=== PATIENT | female | born 1955 | race Two or more races ===

== ENCOUNTER 2018-05-25 09:25 | Emergency (ER) | payer BC, OTHER ==
[2018-05-25 09:50] VITALS: BP 159/97; PULSE 88; TEMP 98; BMI 22.1
--- NOTE | 2018-05-25 10:18 | PDOC ---
History of Present Illness - General Chief Complaint: Eye Problem Stated Complaint: EYE PROBLEM Time Seen by Provider: 05/25/18 10:03 History Source: Patient Exam Limitations: No Limitations - History of Present Illness Initial Comments: 05/25/18 10:12 62 yr female with one week left eye redness now with redness and pain to both nostrils. no fever , pt states no history of MRSA, no DM. neg vision change or discharge, was using eye drops with no relief. 05/25/18 10:20 Timing/Duration: 1 week, getting worse Severity: moderate Associated Symptoms: reports: denies symptoms Past History - Past Medical History Allergies/Adverse Reactions: Allergies Allergy/AdvReac Type Severity Reaction Status Date / Time No Known Drug Allergies Allergy Verified 05/25/18 09:47 Home Medications: Ambulatory Orders Calc/D3/Mag/Zn/Wad Blanking Press Adjuster/Eddie/[place] [Calcium 600 mg + Vit D Tab] 1 each PO BID #0 tablet 10/20/12 Hydroxychloroquine So4 [Plaquenil -] 200 mg PO BID #0 tablet 10/20/12 Leflunomide [Arava (Nf) -] 10 mg PO BID 02/20/13 Alendronate Na [Fosamax (Weekly)] 35 mg PO Q7D 02/19/14 Folic Acid/Multivit-Min/Lutein [Centrum Silver Chewable Tablet] 1 each PO DAILY 02/19/14 Hydrocodone/Acetaminophen [Vicodin Hp 10-300 mg Tablet] 1 each PO PRN PRN Tofacitinib Citrate [Xeljanz] 5 mg PO BID 02/19/14 Hydrocodone Bit/Acetaminophen [Vicodin Es 7.5-300mg -] 1 tab PO Q6H PRN #60 tablet 02/20/14 predniSONE [Deltasone -] 5 mg PO DAILY 02/20/14 Cephalexin [Keflex] 500 mg PO BID #14 capsule 05/25/18 Mupirocin Ointment [Bactroban] 1 applic TP TID #1 tube 05/25/18 Sulfamethoxazole/Trimethoprim [Bactrim Ds Tablet] 1 each PO BID #20 tablet 05/25 Anemia: No Asthma: No Cancer: No Cardiac Disorders: No CVA: No COPD: No CHF: No Dementia: No Diabetes: No GI Disorders: No Disorders: No HTN: No Hypercholesterolemia: No Liver Disease: No Seizures: No Thyroid Disease: No - Surgical History Orthopedic Surgery: Yes (arthroscopy left knee; ra nodules) - Suicide/Smoking/Psychosocial Hx Smoking History: Current every day smoker Have you smoked in the past 12 months: Yes Number of Cigarettes Smoked Daily: 20 Information on smoking cessation initiated: No 'Breaking Loose' booklet given: 02/20/14 Hx Alcohol Use: No Drug/Substance Use Hx: No Substance Use Type: None Hx Substance Use Treatment: No Review of Systems - Review of Systems Able to Perform ROS?: Yes Is the patient limited Turkish proficient: No Constitutional: No: Symptoms Reported HEENTM: Yes: Symptoms Reported, Other (itchy around the eyelid ). No: Eye Pain , Recent change in vision, Double Vision *Physical Exam - Vital Signs Last Vital Signs Temp Pulse Resp BP Pulse Ox 98 F 88 16 159/97 99 05/25/18 09:47 05/25/18 09:47 05/25/18 09:47 05/25/18 09:47 05/25/18 09:47 - Physical Exam General Appearance: Yes: Nourished, Appropriately Dressed HEENT: positive: EOMI, PAULA, TMs Normal, Pharynx Normal, Other (bilateral nares with redness, mild crusted discharge, left preseptal area with redness, no bony tenderness, EOMI no pain iwth eye movement, no vison changes ) Moderate Sedation - Procedure Monitoring Vital Signs: Procedure Monitoring Vital Signs Temperature 98 F 05/25/18 09:47 Pulse Rate 88 05/25/18 09:47 Respiratory Rate 16 05/25/18 09:47 Blood Pressure 159/97 05/25/18 09:47 O2 Sat by Pulse Oximetry (%) 99 05/25/18 09:47 Medical Decision Making - Medical Decision Making 05/25/18 10:19 cc: left eyelid swollen and red bilateral nares with redness and crust felt feverish last night neg vomiting history of RA on steroids visual acuity is 20/30 bilateraly with glasses will treat for preseptal cellulitus with bactrim, keflex and bactroban ointment to the nares , MRSA screen obtained and sent to the lab strict follow up in 48hrs pt understands how facial cellulitus can become life threatening if not treated and followed up properly. 12/27/18 10:22 *DC/Admit/Observation/Transfer Diagnosis at time of Disposition: Cellulitis Qualifiers: Site of cellulitis: face Qualified Code(s): L03.211 - Cellulitis of face - Discharge Dispostion Disposition: HOME Condition at time of disposition: Good - Prescriptions Prescriptions: Cephalexin [Keflex] 500 mg PO BID #14 capsule Mupirocin Ointment [Bactroban] 1 applic TP TID #1 tube Sulfamethoxazole/Trimethoprim [Bactrim Ds Tablet] 1 each PO BID #20 tablet - Referrals Referrals: Horace Ochoa MD [Staff Physician] - - Patient Instructions Additional Instructions: please use the medication as directed wash hands with antibacterial soap often change your pillow case, your bath towels you have been given the name of an opthomologist to follow up with next week RETURN in 48hours for wound check return sooner if fever, chills worsening pain or drainage or any other concerns , do not wait go to the ER right away - Post Discharge Activity
== END 2018-05-25 10:46 | disposition home or self-care (01) ==
LOC: JERFT 09:25
DX: L03.211 Cellulitis of face (principal)
CPT/HCPCS: 87081; 99281-25

== ENCOUNTER 2022-10-04 09:52 | Inpatient (IN) | payer OTHER, BC ==
[2022-10-04] MEDS ORDERED: FENTANYL NS IVPB 500 MCG/100 ML BAG IVPB SCH (10:15)
[2022-10-04] MEDS: NOREPINEPHRINE BITARTRATE/D5W 8 MG/250 ML BAG IVPB SCH ×2 (10:18→22:20)
[2022-10-04] MEDS: VASOPRESSIN 40 UNITS/100 ML BAG IV SCH ×2 (10:25→20:45)
[2022-10-04 11:13] VITALS: BMI 25.0
[2022-10-04] MEDS ORDERED: DEXMEDETOMIDINE PREMIX 400 MCG/100 ML BAG IVPB SCH (11:15)
[2022-10-04 11:33] LABS: VENOUS BASE EXCESS -23.6 mmol/L (-2-2); VENOUS O2 SATURATION 80.7 % (70-80); VENOUS PCO2 55.2 mmHg (38-52)
[2022-10-04 11:34] LABS: INR 1.99 (0.83-1.09); PROTHROMBIN TIME (PATIENT) 22.9 SEC (9.7-13.0)
[2022-10-04 11:35] LABS: VENOUS PH 6.842 (7.310-7.410)
[2022-10-04 11:37] LABS: ACTIVATED PTT 40.4 SECONDS (25.2-36.5)
[2022-10-04] MEDS ORDERED: SODIUM CHLORIDE 0.9% 500 ML INFUS.BAG IV ONE ×2 (11:40→13:14)
[2022-10-04 11:59] LABS: VENOUS BASE EXCESS -21.5 mmol/L (-2-2); VENOUS O2 SATURATION 86.4 % (70-80); VENOUS PCO2 56.7 mmHg (38-52)
[2022-10-04 12:00] LABS: BASO % 0.4 % (0-2.0); EOS % 0.1 % (0-4.5); HEMATOCRIT 24.9 % (32.4-45.2); HEMOGLOBIN 7.4 GM/dL (10.7-15.3); LYMPH % 34.5 % (8-40); MCH 23.5 pg (25.7-33.7); MCHC 29.7 g/dl (32.0-36.0); MEAN CELL VOLUME 79.1 fl (80-96); MEAN PLT VOLUME 11.5 fl (7.5-11.1); MONO % 2.2 % (3.8-10.2); NEUT % 62.8 % (42.8-82.8); PLATELET COUNT 161 10^3/uL (134-434); RBC 3.14 M/mm3 (3.60-5.2); RDW 18.4 % (11.6-15.6); WHITE BLOOD COUNT 7.1 K/mm3 (4.0-10.0)
[2022-10-04 12:00] LABS: VENOUS PH 6.893 (7.310-7.410)
[2022-10-04] MEDS ORDERED: DEXMEDETOMIDINE HCL 200 MCG/2 ML IVPB ONE ×2 (12:07→12:14)
[2022-10-04 12:16] LABS: LACTIC ACID 19.7 mmol/L (0.4-2.0)
[2022-10-04 12:26] LABS: BASO % 0.2 % (0-2.0); EOS % 0.6 % (0-4.5); HEMATOCRIT 26.2 % (32.4-45.2); HEMOGLOBIN 7.9 GM/dL (10.7-15.3); MCH 23.2 pg (25.7-33.7); MCHC 30.2 g/dl (32.0-36.0); MEAN CELL VOLUME 76.9 fl (80-96); MEAN PLT VOLUME 9.4 fl (7.5-11.1); MONO % 1.1 % (3.8-10.2); NEUT % 90.1 % (42.8-82.8); PLATELET COUNT 275 10^3/uL (134-434); RBC 3.41 M/mm3 (3.60-5.2); RDW 17.4 % (11.6-15.6); WHITE BLOOD COUNT 19.8 K/mm3 (4.0-10.0)
[2022-10-04] MEDS ORDERED: PIPERACILLIN/TAZOB 4.5 GM 4.5 GM in DEXTROSE 5%-WATER 100 ML IVPB ONE ×2 (12:37→13:44)
[2022-10-04] MEDS ORDERED: VANCOMYCIN 1 GM in D5W (PRE-DOCKED) 1,000 MG/250 ML (RESTRICTED TO ID ONLY IVPB ONE (12:37)
[2022-10-04 12:49] LABS: ANISOCYTOSIS 1+; MACROCYTOSIS 1+
[2022-10-04 13:12] LABS: LACTIC ACID 14.4 mmol/L (0.4-2.0)
[2022-10-04] MEDS ORDERED: SODIUM BICARBONATE 8.4% 50 MEQ/50 ML VIAL ONE ×2 (13:28→13:51)
[2022-10-04] MEDS ORDERED: fentaNYL CITRATE 250 MCG/5 ML VIAL ONE (13:29)
[2022-10-04] MEDS ORDERED: PIPERACILLIN/TAZOB 4.5 GM 4.5 GM/100 ML BAG IVPB ONE (13:44)
[2022-10-04] MEDS ORDERED: VANCOMYCIN/WATER FOR INJ (PEG) 1,000 MG/200 ML BAG IVPB ONE (13:44)
[2022-10-04] MEDS ORDERED: SODIUM BICARBONATE 8.4% 50 MEQ/50 ML DISP.SYRIN IVPUSH ONE ×2 (13:51→13:52)
[2022-10-04 13:52] LABS: CHLORIDE 105 mmol/L (98-107); POTASSIUM 5.2 mmol/L (3.5-5.1); SODIUM 140 mmol/L (136-145)
[2022-10-04 13:54] LABS: ALBUMIN 1.9 g/dl (3.4-5.0); ANION GAP 20 MMOL/L (8-16); BLOOD UREA NITROGEN 39.4 mg/dL (7-18); CALCIUM 8.9 mg/dL (8.5-10.1); CO2 15 mmol/L (21-32)
[2022-10-04 13:57] LABS: CREATININE 3.3 mg/dL (0.55-1.3); SGPT/ALT 619 U/L (13-61)
[2022-10-04 13:59] LABS: BILIRUBIN,TOTAL 0.5 mg/dL (0.2-1); TOT PROT 5.6 g/dl (6.4-8.2)
[2022-10-04 14:00] LABS: ALK PHOS 176 U/L (45-117)
[2022-10-04] MEDS ORDERED: SODIUM BICARBONATE 8.4% - 150 MEQ in DEXTROSE 5%-WATER - 950 ML IVPB SCH (14:00)
[2022-10-04 14:08] LABS: GLUCOSE,RANDOM 44 mg/dL (74-106); SGOT/AST 1382 U/L (15-37)
[2022-10-04] MEDS ORDERED: DEXTROSE 50%-WATER 25 GM/50 ML DISP.SYRIN ONE (14:23)
[2022-10-04] MEDS ORDERED: DEXTROSE 50%-WATER - 25 GM/50 ML VIAL IVPUSH ONE ×4 (14:34→14:58)
[2022-10-04 14:36] LABS: EPI CELLS >36 /uL (0-25.1); HYALINE CASTS 9 /uL (0-3.1); URINE APPEARANCE CLOUDY; URINE BACTERIA 125 /uL (0-1359); URINE BILIRUBIN NEGATIVE (NEGATIVE); URINE COLOR DK YELLOW; URINE GLUCOSE (UA) NEGATIVE (NEGATIVE); URINE KETONE NEGATIVE (NEGATIVE); URINE LEUK ESTERASE NEGATIVE (NEGATIVE); URINE NITRITE NEGATIVE (NEGATIVE); URINE PROTEIN 2+ (NEGATIVE); URINE RBC 11 /uL (0-23.9); URINE UROBILINOGEN 0.2 mg/dL (0.2-1.0); URINE WBC 47 /uL (0-25.8)
[2022-10-04] MEDS ORDERED: LACTATED RINGERS SOLUTION 1,000 ML/1,000 ML INFUS.BAG IV SCH (16:15)
[2022-10-04] MEDS ORDERED: MIDAZOLAM HCL 2 MG/2 ML SINGLE DOSE VIAL IVPUSH ONE (16:23)
[2022-10-04] MEDS ORDERED: MIDAZOLAM HCL 2 MG/2 ML SINGLE DOSE VIAL ONE (16:26)
[2022-10-04 17:41] LABS: BASO % 0.2 % (0-2.0); EOS % 0.7 % (0-4.5); HEMATOCRIT 18.9 % (32.4-45.2); MCHC 32.2 g/dl (32.0-36.0); MEAN CELL VOLUME 74.7 fl (80-96); MEAN PLT VOLUME 8.9 fl (7.5-11.1); MONO % 2.3 % (3.8-10.2); NEUT % 88.8 % (42.8-82.8); PLATELET COUNT 169 10^3/uL (134-434); RBC 2.53 M/mm3 (3.60-5.2); RDW 17.7 % (11.6-15.6); WHITE BLOOD COUNT 10.6 K/mm3 (4.0-10.0)
[2022-10-04 17:42] LABS: ARTERIAL BLD GAS O2 SATURATION 99.3 % (95-98); ARTERIAL BLOOD GAS pH 7.233 (7.350-7.450); HEMOGLOBIN 6.1 GM/dL (10.7-15.3)
[2022-10-04 17:46] LABS: VENT RATE 20
[2022-10-04] MEDS ORDERED: MIDAZOLAM IN 0.9 % SOD.CHLORID 100 MG/100 ML PLAST..BAG IVPB SCH (18:15)
[2022-10-04 18:25] LABS: POTASSIUM 4.5 mmol/L (3.5-5.1)
[2022-10-04 18:27] LABS: BLOOD UREA NITROGEN 39.2 mg/dL (7-18)
[2022-10-04 18:32] LABS: BILIRUBIN,TOTAL 0.7 mg/dL (0.2-1)
[2022-10-04] MEDS: MUPIROCIN 2% TOPICAL OINTMENT FOR DECOLONIZATION NS SCH ×2 (18:51→22:22)
[2022-10-04 19:05] LABS: ALBUMIN 1.2 g/dl (3.4-5.0); CALCIUM 7.1 mg/dL (8.5-10.1); TOT PROT 3.5 g/dl (6.4-8.2)
[2022-10-04] MEDS ORDERED: levETIRAcetam 500 MG/5 ML INJECTION VIAL IVPB ONE ×2 (19:09→20:24)
[2022-10-04 19:18] LABS: CHLORIDE 100 mmol/L (98-107); POTASSIUM 4.7 mmol/L (3.5-5.1); SODIUM 141 mmol/L (136-145)
[2022-10-04 19:20] LABS: CALCIUM 7.8 mg/dL (8.5-10.1)
[2022-10-04 19:21] LABS: ALBUMIN 1.6 g/dl (3.4-5.0); ANION GAP 25 MMOL/L (8-16); BLOOD UREA NITROGEN 38.9 mg/dL (7-18); CO2 16 mmol/L (21-32); GLUCOSE,RANDOM 148 mg/dL (74-106)
[2022-10-04 19:24] LABS: CREATININE 3.1 mg/dL (0.55-1.3); SGPT/ALT 740 U/L (13-61)
[2022-10-04 19:25] LABS: BILIRUBIN,TOTAL 0.8 mg/dL (0.2-1); TOT PROT 4.6 g/dl (6.4-8.2)
[2022-10-04 19:53] LABS: ALK PHOS 134 U/L (45-117); SGOT/AST 2231 U/L (15-37)
[2022-10-04 20:14] LABS: PHOSPHOROUS 9.9 mg/dL (2.5-4.9)
[2022-10-04 20:35] VITALS: BP 100/66; PULSE 84; TEMP 93.8
[2022-10-04] MEDS ORDERED: DEXTROSE 5%-WATER - 950 ML with SODIUM BICARBONATE 8.4% - 150 MEQ IV SCH (20:45)
[2022-10-04 20:54] LABS: LACTIC ACID > 15.0 mmol/L (0.4-2.0)
[2022-10-04] MEDS ORDERED: SODIUM BICARBONATE 8.4% - 150 MEQ in DEXTROSE 5%-WATER - 950 ML IV SCH (20:58)
[2022-10-04 21:31] VITALS: RESP 21
[2022-10-04] MEDS ORDERED: CHLORHEXIDINE GLUCONATE 4% CLEANSER FOR DECOLONIZATION TP SCH (22:00)
[2022-10-04 22:03] LABS: LACTIC ACID > 15.0 mmol/L (0.4-2.0)
[2022-10-05] MEDS ORDERED: PIPERACILLIN/TAZOB 2.25 GM 2.25 GM in DEXTROSE 5%-WATER - 50 ML IVPB SCH (02:00)
[2022-10-05] MEDS ORDERED: levETIRAcetam 500 MG/5 ML INJECTION VIAL IVPB SCH (10:00)
== END 2022-10-04 22:37 | disposition expired | DRG 296 ==
LOC: JER 09:52 → JERBED 11:22 → JICU 16:03
PROVIDERS: ADMIT Internal Medicine; ATTEND Internal Medicine
PROC: 05H633Z Insertion of Infusion Device into Left Subclavian Vein, Percutaneous Approach (ICD-10-PCS; principal; 2022-10-04)
PROC: 5A12012 Performance of Cardiac Output, Single, Manual (ICD-10-PCS; 2022-10-04)
PROC: 5A1935Z Respiratory Ventilation, Less than 24 Consecutive Hours (ICD-10-PCS; 2022-10-04)
PROC: 0BH17EZ Insertion of Endotracheal Airway into Trachea, Via Natural or Artificial Opening (ICD-10-PCS; 2022-10-04)
PROC: 30233N1 Transfusion of Nonautologous Red Blood Cells into Peripheral Vein, Percutaneous Approach (ICD-10-PCS; 2022-10-04)
DX: I46.9 Cardiac arrest, cause unspecified (principal); G93.41 Metabolic encephalopathy; J18.9 Pneumonia, unspecified organism; J96.90 Respiratory failure, unspecified, unspecified whether with hypoxia or hypercapnia; G93.1 Anoxic brain damage, not elsewhere classified; N17.9 Acute kidney failure, unspecified; E87.20 Acidosis, unspecified; R64 Cachexia; R57.0 Cardiogenic shock; I49.01 Ventricular fibrillation; M06.9 Rheumatoid arthritis, unspecified; G40.901 Epilepsy, unspecified, not intractable, with status epilepticus; D64.9 Anemia, unspecified; F17.210 Nicotine dependence, cigarettes, uncomplicated; L93.0 Discoid lupus erythematosus; Z68.25 Body mass index [BMI] 25.0-25.9, adult; E78.5 Hyperlipidemia, unspecified
CPT/HCPCS: 0241U-QW; 36415; 36430; 36600; 70450-TC; 71045-TC-FY; 71275-TC; 74176-TC; 80053; 81003; 82553; 82803; 82962; 83605; 83735; 84100; 84484; 85025; 85610; 85730; 86850; 86900; 86901; 86922; 87040; 87086; 87186; 93005; 93010; 99291; J3490; P9058; Q9967